=== PATIENT | female | born 1945 | race Caucasian/White ===

== ENCOUNTER 2017-12-09 14:09 | Emergency (ER) | payer OTHER ==
[~2017-12-09] VITALS: Ht 157.5 cm; Wt 90.9 kg
[~2017-12-09 14:09] MED LIST: MOBIC15 MG PO
[2017-12-09 16:10] LABS: HEMATOCRIT 42.4 % (36.0-46.0); HEMOGLOBIN 14.2 G/DL (11.9-15.5); MCH 30.4 PG (29.0-34.0); MCHC 33.5 G/DL (30.0-36.0); MCV 90.8 FL (83-99); PLATELET COUNT 302 K/uL (156-360); RBC DIS.WIDTH-CV 14.6 % (11.8-14.6); RBC DIS.WIDTH-SD 48.6 % (39-53); RED BLOOD COUNT 4.67 M/uL (3.80-5.20)
[2017-12-09 16:46] LABS: CHLORIDE 103 MEQ/L (99-109); POTASSIUM 4.7 MEQ/L (3.7-5.4); SODIUM 137 MEQ/L (136-147)
[2017-12-09 16:52] LABS: CREATININE 0.8 MG/DL (0.6-1.3); GFR ESTIMATE (CALCULATED) > 59 mL/min/; GLUCOSE 88 mg/dL (70-99); UREA NITROGEN (BUN) 13 mg/dL (9-23)
[2017-12-09 17:29] VITALS: BP 145/99
== END 2017-12-09 17:31 | disposition home or self-care (01) ==
LOC: EME 14:09
PROC: 3E0234Z Introduction of Serum, Toxoid and Vaccine into Muscle, Percutaneous Approach (ICD-10-PCS; principal; 2017-12-09)
DX: S00.83XA Contusion of other part of head, initial encounter (principal); S60.222A Contusion of left hand, initial encounter; S80.02XA Contusion of left knee, initial encounter; W01.0XXA Fall on same level from slipping, tripping and stumbling without subsequent striking against object, initial encounter; Z23 Encounter for immunization; I10 Essential (primary) hypertension; E03.9 Hypothyroidism, unspecified; Z96.653 Presence of artificial knee joint, bilateral; Z90.49 Acquired absence of other specified parts of digestive tract; Z88.2 Allergy status to sulfonamides; Z88.5 Allergy status to narcotic agent
CPT/HCPCS: 70450; 70486; 73130; 73564; 80048; 85027; 99281; 99284

== ENCOUNTER 2018-04-14 09:54 | Day surgery (SDC) | payer OTHER ==
[~2018-04-14] VITALS: Ht 160 cm; Wt 90.7 kg
[2018-04-14] MEDS ORDERED: PERPHEN-AMITRI1 EACH PO (10:49)
[2018-04-14] MEDS ORDERED: LEVOTHYROXINE100 MCG PO (10:49)
[2018-04-14] MEDS ORDERED: SIMVASTATIN20 MG PO (10:49)
[2018-04-14] MEDS ORDERED: LISINOPRIL20 MG PO (10:50)
[2018-04-14] MEDS ORDERED: OXYBUTYNIN CHLOR5 MG PO (10:51)
[2018-04-14] MEDS ORDERED: IBANDRONATE SO150 MG PO (10:51)
[2018-04-14] MEDS ORDERED: ASPIRIN81 M2 PO (10:52)
[2018-04-14] MEDS ORDERED: AMLODIPINE BESYL5 MG PO (10:52)
== END 2018-04-14 16:30 | disposition home or self-care (01) ==
LOC: CATH 09:54
DX: I25.10 Atherosclerotic heart disease of native coronary artery without angina pectoris (principal); I35.0 Nonrheumatic aortic (valve) stenosis; E78.5 Hyperlipidemia, unspecified; I10 Essential (primary) hypertension; Z88.2 Allergy status to sulfonamides; Z79.82 Long term (current) use of aspirin
CPT/HCPCS: 93005; C1769; C1887; J1644; J2250; J3010; J7040